=== PATIENT | male | born 1940 | race Caucasian/White ===

== ENCOUNTER → 2020-03-03 | Outpatient (CLI) | payer MEDICARE, OTHER ==
[2020-03-03 14:34] LABS: CREATININE 1.8 mg/dL (0.7-1.3); GFR 36.7; POTASSIUM 4.2 mmol/L (3.5-5.1)
[2020-03-03 15:12] LABS: BASO # 0.1 x10^3/uL (0.0-0.2); BASO % 1 % (0-3); EOS # 0.1 x10^3/uL (0.0-0.7); EOS % 2 % (0-3); HEMATOCRIT 37.9 % (39.0-53.0); HEMOGLOBIN 12.7 g/dL (13.0-17.5); LYMPH # 1.7 x10^3/uL (1.0-4.8); LYMPH % 19 % (24-48); MEAN CORPUSCULAR HEMOGLOBIN 31 pg (25-35); MEAN CORPUSCULAR HGB CONC 34 g/dL (31-37); MEAN CORPUSCULAR VOLUME 92 fL (79-100); MONO # 0.6 x10^3/uL (0.0-1.1); MONO % 7 % (0-9); NEUT # 6.5 x10^3uL (1.8-7.7); NEUT % 73 % (31-73); PLATELET COUNT 242 x10^3/uL (140-400); RED BLOOD COUNT 4.12 x10^6/uL (4.30-5.70); RED CELL DISTRIBUTION WIDTH 14.2 % (11.5-14.5)
== END | disposition home or self-care (01) ==
LOC: LAB 13:18
PROVIDERS: ATTEND Internal Medicine Interventional Cardiology
DX: I10 Essential (primary) hypertension (principal)
CPT/HCPCS: 36415; 80048; 85025

== ENCOUNTER 2021-05-06 18:33 | Observation (INO) | payer MEDICARE ==
[~2021-05-06] VITALS: Ht 185.4 cm; Wt 116.9 kg
[2021-05-06 20:07] LABS: BASO % 0 % (0-3); EOS % 0 % (0-3); HEMATOCRIT 31.3 % (39.0-53.0); HEMOGLOBIN 10.2 g/dL (13.0-17.5); LYMPH # 1.2 x10^3/uL (1.0-4.8); LYMPH % 5 % (24-48); MEAN CORPUSCULAR HEMOGLOBIN 31 pg (25-35); MEAN CORPUSCULAR HGB CONC 33 g/dL (31-37); MEAN CORPUSCULAR VOLUME 94 fL (79-100); MONO # 1.5 x10^3/uL (0.0-1.1); MONO % 7 % (0-9); NEUT % 88 % (31-73); PLATELET COUNT 190 x10^3/uL (140-400); RED BLOOD COUNT 3.34 x10^6/uL (4.30-5.70); RED CELL DISTRIBUTION WIDTH 14.4 % (11.5-14.5); WHITE BLOOD COUNT 22.7 x10^3/uL (4.0-11.0)
[2021-05-06 20:12] LABS: CALCIUM 8.8 mg/dL (8.5-10.1); CREATININE 4.6 mg/dL (0.7-1.3); GFR 12.4; POTASSIUM 3.8 mmol/L (3.5-5.1)
[2021-05-06 20:17] LABS: ALBUMIN 2.9 g/dL (3.4-5.0); ALBUMIN/GLOBULIN RATIO 0.8 (1.0-1.7); TOTAL BILIRUBIN 1.1 mg/dL (0.2-1.0); TOTAL PROTEIN 6.7 g/dL (6.4-8.2)
[2021-05-06 20:33] LABS: % BANDS 5 % (0-9); % LYMPHS 9 % (24-48); % MONOS 3 % (0-10); % SEGS 83 % (35-66); PLT ESTIMATE ADEQUATE (ADEQUATE)
[2021-05-06] MEDS ORDERED: IOHEXOL 350 MG/ML 100 ML VIAL. IV ONE (20:45)
--- NOTE | 2021-05-06 21:02 | RAD ---
AP portable chest radiograph 05/06/2021 Clinical History: Shortness of breath. Two AP erect portable digital radiographs of the chest were obtained. The patient is post right shoulder joint replacement. The cardiac silhouette is mildly enlarged. The thoracic aorta is tortuous. Prominence of the pulmonary vasculature and interstitial markings in both lungs is seen consistent with mild to moderate CHF. No pneumothorax or pleural effusion is seen. Deg enerative changes are seen thoracic spine. IMPRESSION: Findings suggesting mild to moderate CHF. Electronically signed by: Doc Aviles MD (05/06/2021 9:00 PM) [id number]
[2021-05-06 21:07] LABS: CLARITY,URINE TURBID; COLOR,URINE YELLOW; GLUCOSE,URINE 100 mg/dL (NEG)
[2021-05-06 21:08] LABS: BACTERIA,URINE MANY /HPF (0-FEW); BILIRUBIN,URINE SMALL (NEG); NITRITE,URINE POS (NEG); RBC,URINE 20-40 /HPF (0-2); SQUAMOUS EPITHELIAL CELL,UR FEW /LPF; WBC,URINE TNTC /HPF (0-4)
--- NOTE | 2021-05-06 21:55 | PHYS DOC ---
Past History Additional Past Medical Histor: card stents (CHITRA KNAPP APRN) Past Surgical History: Other (CHITRA KNAPP APRN) Alcohol Use: None (CHITRA KNAPP APRN) General Adult EDM: Chief Complaint: SHORTNESS OF BREATH HPI: HPI: Patient is a 81-year-old male who presents with shortness of breath, urinary incontinence and blood in his urine. Patient states that symptoms started 2 days ago. Patient denies fever, cough or recent illness. Patient has history of hypertension, high cholesterol. Patient's fully vaccinated for COVID-19. (CHITRA KNAPP APRN) Review of Systems: Review of Systems: ROS At least 10 ROS systems have been reviewed and are negative except as documented in the HPI. General: Negative except as outlined in HPI above. Skin: Negative except as outlined in HPI above. HEENT: Negative except as outlined in HPI above. Neck: Negative except as outlined in HPI above. Respiratory: Negative except as outlined in HPI above.. Cardiovascular: Negative except as outlined in HPI above. Abdomen: Negative except as outlined in HPI above. : Negative except as outlined in HPI above. Back/MSK: Negative except as outlined in HPI above. Neuro: Negative except as outlined in HPI above. Psych: Negative except as outlined in HPI above. (CHITRA KNAPP APRN) Current Medications: Current Meds: Current Medications Medications (Trade) Dose Ordered Sig/Perfecto Start Time Stop Time Status Last Admin Dose Admin Iohexol (Omnipaque 350 Mg/ml) 100 ml 1X ONCE 05/06/21 20:45 05/06/21 20:46 UNV (CHITRA KNAPP APRN) Physical Exam: PE: Constitutional: Well developed, well nourished, no acute distress, non-toxic appearance. [] HENT: Normocephalic, atraumatic, bilateral external ears normal, oropharynx moist, no oral exudates, nose normal. [] Eyes: PERRLA, EOMI, conjunctiva normal, no discharge. [] Neck: Normal range of motion, no tenderness, supple, no stridor. [] Cardiovascular:Heart rate regular rhythm, no murmur [] Lungs & Thorax: Bilateral breath sounds clear to auscultation [] Abdomen: Bowel sounds normal, soft, no tenderness, no masses, no pulsatile masses. [] Skin: Warm, dry, no erythema, no rash. [] Back: No tenderness, no CVA tenderness. [] Extremities: No tenderness, no cyanosis, no clubbing, ROM intact, no edema. [] Neurologic: Alert and oriented X 3, normal motor function, normal sensory function, no focal deficits noted. [] Psychologic: Affect normal, judgement normal, mood normal. [] (CHITRA KNAPP APRN) Current Patient Data: Labs: Laboratory Tests Test 05/06/21 19:35 05/06/21 19:40 05/06/21 20:43 White Blood Count 22.7 x10^3/uL (4.0-11.0) H Red Blood Count 3.34 x10^6/uL (4.30-5.70) L Hemoglobin 10.2 g/dL (13.0-17.5) L Hematocrit 31.3 % (39.0-53.0) L Mean Corpuscular Volume 94 fL (79-100) Mean Corpuscular Hemoglobin 31 pg (25-35) Mean Corpuscular Hemoglobin Concent 33 g/dL (31-37) Red Cell Distribution Width 14.4 % (11.5-14.5) Platelet Count 190 x10^3/uL (140-400) Neutrophils (%) (Auto) 88 % (31-73) H Lymphocytes (%) (Auto) 5 % (24-48) L Monocytes (%) (Auto) 7 % (0-9) Eosinophils (%) (Auto) 0 % (0-3) Basophils (%) (Auto) 0 % (0-3) Neutrophils # (Auto) 20.0 x10^3uL (1.8-7.7) H Lymphocytes # (Auto) 1.2 x10^3/uL (1.0-4.8) Monocytes # (Auto) 1.5 x10^3/uL (0.0-1.1) H Eosinophils # (Auto) 0.0 x10^3/uL (0.0-0.7) Basophils # (Auto) 0.0 x10^3/uL (0.0-0.2) Segmented Neutrophils % 83 % (35-66) H Band Neutrophils % 5 % (0-9) Lymphocytes % 9 % (24-48) L Monocytes % 3 % (0-10) Platelet Estimate Adequate (ADEQUATE) D-Dimer (Milagros) 1.15 mg/L (0.00-0.50) H Sodium Level 135 mmol/L (136-145) L Potassium Level 3.8 mmol/L (3.5-5.1) Chloride Level 99 mmol/L (98-107) Carbon Dioxide Level 23 mmol/L (21-32) Anion Gap 13 (6-14) Blood Urea Nitrogen 50 mg/dL (8-26) H Creatinine 4.6 mg/dL (0.7-1.3) H Estimated GFR (Cockcroft-Gault) 12.4 BUN/Creatinine Ratio 11 (6-20) Glucose Level 132 mg/dL (70-99) H Lactic Acid Level 1.6 mmol/L (0.4-2.0) Calcium Level 8.8 mg/dL (8.5-10.1) Total Bilirubin 1.1 mg/dL (0.2-1.0) H Aspartate Amino Transferase (AST) 21 U/L (15-37) Alanine Aminotransferase (ALT) 21 U/L (16-63) Alkaline Phosphatase 75 U/L (46-116) Troponin I High Sensitivity 17 ng/L (4-75) OZ-Cew-U-Type Natriuretic Peptide 3319 pg/mL (0-449) H Total Protein 6.7 g/dL (6.4-8.2) Albumin 2.9 g/dL (3.4-5.0) L Albumin/Globulin Ratio 0.8 (1.0-1.7) L SARS-CoV-2 Antigen (Rapid) Negative (NEGATIVE) Urine Collection Type Unknown Urine Color Yellow Urine Clarity Turbid Urine pH 5.5 Urine Specific [place]xton 1.020 Urine Protein >100 mg/dl (NEG-TRACE) Urine Glucose (UA) 100 mg/dL (NEG) Urine Ketones (Stick) Trace mg/dL (NEG) Urine Blood Large (NEG) Urine Nitrite Pos (NEG) Urine Bilirubin Small (NEG) Urine Urobilinogen Dipstick 2.0 mg/dL (0.2 mg/dL) Urine Leukocyte Esterase Large (NEG) Urine RBC 20-40 /HPF (0-2) Urine WBC Tntc /HPF (0-4) Urine Squamous Epithelial Cells Few /LPF Urine Bacteria Many /HPF (0-FEW) Vital Signs: Vital Signs Date Time Temp Pulse Resp B/P (MAP) Pulse Ox O2 Delivery O2 Flow Rate FiO2 05/06/21 18:45 98.1 106 24 141/50 (80) 94 Room Air (CHITRA KNAPP APRN) EKG: EKG: [] (CHITRA KNAPP APRN) Radiology/Procedures: Radiology/Procedures: []AP portable chest radiograph 05/06/2021 Clinical History: Shortness of breath. Two AP erect portable digital radiographs of the chest were obtained. The patient is post right shoulder joint replacement. The cardiac silhouette is mildly enlarged. The thoracic aorta is tortuous. Prominence of the pulmonary vasculature and interstitial markings in both lungs is seen consistent with mild to moderate CHF. No pneumothorax or pleural effusion is seen. Degenerative changes are seen thoracic spine. IMPRESSION: Findings suggesting mild to moderate CHF. Electronically signed by: Doc Aviles MD (05/06/2021 9:00 PM) [id number] (CHITRA KNAPP APRN) Heart Score: C/O Chest Pain: No Risk Factors: Risk Factors: DM, Current or recent (<one month) smoker, HTN, HLP, family history of CAD, obesity. Risk Scores: Score 0 - 3: 2.5% MACE over next 6 weeks - Discharge Home Score 4 - 6: 20.3% MACE over next 6 weeks - Admit for Clinical Observation Score 7 - 10: 72.7% MACE over next 6 weeks - Early Invasive Strategies (CHITRA KNAPP APRN) Course & Med Decision Making: Course & Med Decision Making Pertinent Labs and Imaging studies reviewed. (See chart for details) [] 81-year-old male presents with shortness of breath and hematuria. Patient states he is also had incontinence last couple of days. Patient is afebrile. Patient appeared very short of breath on arrival. Patient reports that that is new for him. Patient's breathing did improve while in the ER. Patient did not require oxygen. WBC22.7, hemoglobin 10.3, hematocrit 31.3, BUN 50, creatinine 4.6, total bili 1.1, lactic of 1.6. This is patient's first visit, I have no past visits for comparison. Patient was tested for Covid which was negative. Urine is positive for nitrates, leuks, blood. Chest x-ray shows mild to moderate CHF. BNP 3319. discussed all results with patient. Advised patient that he would need to be admitted (CHITRA KNAPP APRN) Course & Med Decision Making Did not see or evaluate patient. Did not discuss patient with INDUSTRIAL ECONOMIST. Agree with INDUSTRIAL ECONOMIST's work-up and disposition per note. (IMTIAZ THOMAS MD) Dragon Disclaimer: Dragon Disclaimer: This electronic medical record was generated, in whole or in part, using a voice recognition dictation system. (CHITRA KNAPP APRN) Departure Departure: Disposition: HOME / SELF CARE / HOMELESS Condition: STABLE Referrals: RONAK LUCAS MD (PCP) CHITRA KNAPP APRN May 06, 2021 21:55 IMTIAZ THOMAS MD May 06, 2021 22:28
--- NOTE | 2021-05-06 22:08 | RAD ---
CT scan of the chest, abdomen and pelvis without contrast 05/06/2021 CLINICAL HISTORY: Shortness of breath, chest, abdominal and pelvic pain. TECHNIQUE: Unenhanced contiguous, 3 mm axial sections were obtained through the chest, abdomen and pe lvis. One or more of the following individualized dose reduction techniques were utilized for this study: 1. Automated exposure control. 2. Adjustment of the mA and/or kV according to patient size. 3. Use of iterative reconstruction technique. FINDINGS: Comparison is made to portable chest radiograph performed earlier today. The patient is post right shoulder joint replacement. Atherosclerotic calcification of the thoracic a nehemias and its branches is noted. Extensive coronary artery calcifications are seen. The heart is borde rline enlarged. The thoracic aorta is tortuous but tapers normally. Calcified left hilar and mediasti nal lymph nodes are noted. A 1 cm calcified granuloma is seen involving the left upper lobe. Emphysematous changes are seen thro ughout both lungs. A 4 mm calcified granuloma is seen involving the right lower lobe. No area of cons olidation is seen. No pneumothorax or pleural effusion is noted. The liver, pancreas, adrenal glands and right kidney are within normal limits. Calcified granulomas a re seen scattered throughout the spleen. A 9 mm oval-shaped low-attenuation structure is seen project ing posteriorly from the midpole of the left kidney. A 2.7 cm oval-shaped low-attenuation structure i s seen projecting laterally from the midpole of the left kidney. These likely represent cysts. No fur ther imaging evaluation is recommended. Atherosclerotic calcification of the abdominal aorta and its branches is seen. The abdominal aorta ta pers normally. No free fluid or free air is within the abdomen. There is no evidence of bowel obstruc tion. The appendix is well-visualized and is within normal limits. Images through the pelvis demonstrate the urinary bladder be slightly contracted. The prostate gland is enlarged likely related to BPH. No free fluid is seen. Minimal S-shaped curvature of the thoracolu mbar spine is seen. Degenerative changes are seen involving the thoracic and throughout the lumbar sp ine along with both hips. IMPRESSION: No acute abnormality is seen. Electronically signed by: Doc Aviles MD (05/06/2021 10:06 PM) [id number]
[2021-05-06] MEDS ORDERED: IV RINGERS SOLUTION,LACTATED 1,000 ML IV ONE ×2 (22:15→22:30)
[2021-05-06] MEDS ORDERED: CIPROFLOXACIN 400MG PREMIX 200 ML IV ONE (22:15)
[2021-05-06] MEDS ORDERED: IV NORMAL SALINE 50ML 50 ML ONE (22:26)
[2021-05-06] MEDS ORDERED: cefTRIAXone SODIUM 1 GM VIAL ONE (22:26)
[2021-05-06 23:45] VITALS: BP 110/62
--- NOTE | 2021-05-06 23:45 | NUR ---
Admission: The patient, MARTITA LEIGH, 81 y/o, M admitted by JAYDE DOMINIQUE MD, was given written information regarding hospital policies, unit procedures and contact persons. Pt arrived to room 109 via gurney, accompanied by [facility] and ED staff. Pt here for c/o fatigue and bloody urine x3 days. Pt has hx of BPH. Dx: LEIGHA, UTI. Pt received IV Rocephin in ED and has LR running at 100ml/hr per order. A/Ox4, pleasant. Pt reports limited hx, recalls cardiac stents x2 placed last year and reports he takes a daily ASA. Pt requests that his daughter be contacted for a medication list. Discussed POC, V/U. Call light in reach. Valuables were checked and logged. Left in room with pt.
--- NOTE | 2021-05-07 00:15 | NUR ---
Pt requesting sleep aid. Dr. Ramirez called and new order received for melatonin.
[2021-05-07] MEDS ORDERED: ACETAMINOPHEN 500 MG TABLET PO PRN (00:30)
[2021-05-07] MEDS ORDERED: MELATONIN 3 MG TABLET PO PRN (00:30)
[2021-05-07] MEDS ORDERED: ATOR20TA PO (04:26)
[2021-05-07] MEDS ORDERED: LOSA1TAB25 PO (04:26)
[2021-05-07] MEDS ORDERED: CHOL10004 PO (04:26)
[2021-05-07] MEDS ORDERED: ASPI-889 PO (04:26)
[2021-05-07 05:09] VITALS: BP 116/63
[2021-05-07 06:37] LABS: BASO % 0 % (0-3); EOS % 0 % (0-3); HEMATOCRIT 30.4 % (39.0-53.0); HEMOGLOBIN 10.1 g/dL (13.0-17.5); LYMPH % 6 % (24-48); MEAN CORPUSCULAR HEMOGLOBIN 31 pg (25-35); MEAN CORPUSCULAR HGB CONC 33 g/dL (31-37); MEAN CORPUSCULAR VOLUME 92 fL (79-100); MONO # 0.9 x10^3/uL (0.0-1.1); MONO % 5 % (0-9); NEUT # 16.1 x10^3uL (1.8-7.7); NEUT % 89 % (31-73); PLATELET COUNT 178 x10^3/uL (140-400); RED CELL DISTRIBUTION WIDTH 14.7 % (11.5-14.5); WHITE BLOOD COUNT 18.1 x10^3/uL (4.0-11.0)
[2021-05-07 07:06] LABS: CALCIUM 8.3 mg/dL (8.5-10.1); CREATININE 5.2 mg/dL (0.7-1.3); GFR 10.7; POTASSIUM 3.7 mmol/L (3.5-5.1)
[2021-05-07] MEDS ORDERED: IV RINGERS SOLUTION,LACTATED 1,000 ML IV SCH (09:15)
--- NOTE | 2021-05-07 09:24 | HP ---
DATE OF SERVICE: 05/07/2021 ADMIT DATE: 05/06/2021 ATTENDING PHYSICIAN: Dr. Ramirez. CHIEF COMPLAINT: Dysuria. HISTORY OF PRESENT ILLNESS: The patient is an 81-year-old gentleman with urinary dysuria. He has had dribbling, poorly controlled maintenance of his bladder. He is not obstructed per se, but the workup showed an enlarged prostate gland. His workup in the ED showed a creatinine of 4.6 mg percent repeated today is up to 5.2 mg percent. He also had a CT of the chest, abdomen and pelvis. I suspect he did get contrast. He is admitted then with acute renal failure on the basis of obstructive uropathy as well as contrast-induced nephropathy. PAST MEDICAL HISTORY: Significant for hypertension, degenerative arthritis, hyperlipidemia. MEDICATIONS: Include aspirin, Lipitor, losartan, hydrochlorothiazide, and vitamin D. ALLERGIES: He has no known drug allergies. SOCIAL HISTORY: He was a smoker up to 10 years ago. He does not drink alcohol. FAMILY HISTORY: Father of black lung disease at age 58. Mom of old age and Alzheimer disease at age 84. He is retired from working at [employer]. He lives with his . REVIEW OF SYSTEMS: Significant for the dribbling. No fevers, chills, dysuria. No nausea, vomiting, hematemesis. He denied any intractable nausea or pruritus. All other systems reviewed and turned out to be negative. PHYSICAL EXAMINATION: GENERAL: When I saw him, this is a very pleasant elderly gentleman. VITAL SIGNS: Initial vital signs showed a blood pressure of 116/63, pulse is 80 and regular. He was afebrile, oxygen saturation 95% on room air. HEENT: Head is without trauma. Pupils are reactive. Sclerae nonicteric. The oropharynx is clear. NECK: Supple, no bruits. LUNGS: Clear to auscultation. CARDIOVASCULAR: Regular heart tones. No gallops. ABDOMEN: Soft. EXTREMITIES: Showed no edema. NEUROLOGIC: Focally intact. SKIN: Warm and dry. PERTINENT LABORATORY STUDIES: Admission hemoglobin was 10.2 g/dL, white count 22,700, repeated was down to 18,000. Chemistry panel on admission, sodium 135 mEq, potassium was 3.8 mEq per liter. Creatinine on admission was 4.6 mg/dL, BUN 50. Nonfasting blood sugar 132. Repeat BUN is up to 57 and creatinine is 5.2 mg/dL, creatinine clearance is estimated to be less than 15 mL per minute. Potassium 3.7 mEq per liter. ASSESSMENT: 1. This 81-year-old gentleman has acute renal failure. I suspect the etiology is based on a combination of postobstructive uropathy as well as contrast-induced nephropathy. I do not know what his baseline creatinine is. 2. Obesity. 3. Essential hypertension. 4. Prostatism and obstructive uropathy. PLAN: 1. He is admitted to this hospital here. 2. He needs to go to a higher level of care and see a urologist as well as a puppet developer for further treatment. He will need serial chemistries. At this time, he does not have signs of uremia, but he has impending acute renal failure. 3. Antibiotics for suspected UTI. 4. Continue IV hydration. 5. I have explained the details with him. I am in the process of trying to contact [facility] for the hospitalist to accept him in transfer. EDMUNDO DR: Robert TID: [id number]
[2021-05-07 10:40] VITALS: BP 97/55
[2021-05-07 13:55] VITALS: BP 107/63
--- NOTE | 2021-05-07 14:41 | NUR ---
BLADDER SCANNED AFTER PATIENT URINATED 75 ML, URINE RESIDUAL VOLUME IS 39ML.
--- NOTE | 2021-05-07 15:02 | NUR ---
PATIENT IS TRANSFERRED TO [facility] FOR UROLOGY/NEPHROLOGY CONSULT. REPORT GIVEN TO STAFF NURSE. PATIENT LEFT UNIT VIA [facility] BY EMS STAFF. FAMILY NOTIFIED.
--- NOTE | 2021-05-07 18:43 | DS ---
DATE OF DISCHARGE: 05/07/2021 ATTENDING PHYSICIAN: Dr. Ramirez. FINAL DISCHARGE DIAGNOSES: 1. Acute renal failure. 2. Probable obstructive uropathy. 3. Benign prostatic hypertrophy. 4. Essential hypertension. 5. Urinary tract infection. HISTORY AND PHYSICAL: The patient is a pleasant 81-year-old gentleman admitted to the ED with urinary incontinence. The workup included a CT scan of the abdomen and pelvis without contrast. He has prostatic hypertrophy. No hydronephrosis, but evidence of partial obstructive uropathy. Admission creatinine was elevated. PHYSICAL EXAMINATION: Please see my dictated note. PERTINENT LABORATORY AND X-RAY STUDIES: Electrolytes showed a normal sodium. Bicarbonate level was 22. Creatinine was 4.6 mg/dL, repeated the next day was up to 5.2 mg percent. BUN was 61 mg/dL. Potassium was adequate. COURSE IN THE HOSPITAL: I do not have access to baseline creatinine for the patient. He was relatively asymptomatic. He was given a dose of Rocephin in the ED. We had him on some short period of hydration, but because of vascular congestion this was discontinued. Lab work was noted. Chest x-ray showed poor inspiratory effort, but no overt decompensation. In talking with the patient and his family, I felt that he needed the help of Nephrology consultation as well as Urology. I called [facility], they do not have urology services. Therefore, arrangements were then made for patient to go to [facility]. Their transfer team was kind enough to get him into the system. He was transferred by ambulance to go to [facility]. The accepting physician there is Dr. Abigail Andersen, on the hospitalist service. His home meds were held. We held off any medication. He did receive 1 g of Rocephin prior to discharge. The patient was then discharged from our [facility] [place] to [facility] by ambulance for further treatment and evaluation regarding his acute renal failure. NANCY/KACEY DR: Robert TID: [id number] CC: DIANA PHELPS MD
[2021-05-08] MEDS ORDERED: FLU VACC QUAD 21-22 (6MOS+) PF 0.5 ML SYRINGE. VAX IM ONE (09:00)
--- NOTE | 2021-05-08 13:55 | EKG ---
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
== END 2021-05-07 15:00 | disposition short-term general hospital (02) ==
LOC: ER 18:33 → 1 SOUTH 22:17 → INTOOBSV 22:17
PROVIDERS: ADMIT Hospitalist; ATTEND Hospitalist
DX: N17.9 Acute kidney failure, unspecified (principal); Z20.822 Contact with and (suspected) exposure to COVID-19; I10 Essential (primary) hypertension; N40.0 Benign prostatic hyperplasia without lower urinary tract symptoms; E66.9 Obesity, unspecified; N13.9 Obstructive and reflux uropathy, unspecified; N39.0 Urinary tract infection, site not specified; M19.90 Unspecified osteoarthritis, unspecified site; E78.5 Hyperlipidemia, unspecified; Z79.82 Long term (current) use of aspirin; Z95.1 Presence of aortocoronary bypass graft; Z68.34 Body mass index [BMI] 34.0-34.9, adult
CPT/HCPCS: 36415; 71045; 71250; 74176; 80048; 80053; 81001; 83605; 83880; 84484; 85007; 85025; 85379; 87040; 87077; 87086; 87186; 87426; 93005; 96365; 99285; G0378; J0696; J7120; U0003; G0379